=== PATIENT | female | born 1965 | race Caucasian/White ===

== ENCOUNTER 2022-10-28 09:03 | Emergency (ER) | payer OTHER, SELFPAY ==
[2022-10-28] VITALS (9 sets, daily range): BP systolic 134–148; BP diastolic 79–86; PULSE 58–70; TEMP 36; O2SAT 91–100
--- NOTE | 2022-10-28 09:11 | CRLHL7_ITS ---
For Patients: As a result of the Century Cures Act, medical imaging exams and procedure reports are released immediately into your electronic medical record. You may view this report before your referring provider. If you have questions, please contact your health care provider. INDICATION: Stroke, facial droop. COMPARISON: None. TECHNIQUE: CT of the head without IV contrast. Coronal and sagittal reconstructions. FINDINGS: There is a moderate size area of low-attenuation and loss of avina-white differentiation involving the right posterior frontal lobe, parietal lobe, and superior temporal lobe compatible with a developing infarct. No significant mass effect or midline shift. No intracranial hemorrhage or abnormal extra-axial fluid collections. Ventricular caliber is within normal limits. Orbits and extraocular muscles are symmetric. The paranasal sinuses and mastoid air cells are clear. No acute fracture identified. Soft tissues are unremarkable. IMPRESSION: 1. Moderate-sized developing infarct involving the right frontal, parietal, and temporal lobes. 2. Findings discussed with Lexus Schultz at 9:28 a.m. on 10/28/2022. Please note that all CT scans at this facility use dose modulation, iterative reconstruction, and/or weight-based dosing when appropriate to reduce radiation dose to as low as reasonably achievable. Dictated by Maribell Ruvalcaba MD @ 10/28/2022 9:33:26 AM (Electronically Signed)
--- NOTE | 2022-10-28 09:11 | CRLHL7_ITS ---
For Patients: As a result of the Century Cures Act, medical imaging exams and procedure reports are released immediately into your electronic medical record. You may view this report before your referring provider. If you have questions, please contact your health care provider. 1. There is severe narrowing of the M1 segment of the right MCA. Diminutive A2 segment of the right CAN. No other intracranial proximal large vessel occlusion or significant aneurysm identified. 2. Cervical arterial vasculature is patent without evidence of dissection, significant stenosis, or occlusion. Please note that all CT scans at this facility use dose modulation, iterative reconstruction, and/or weight-based dosing when appropriate to reduce radiation dose to as low as reasonably achievable. Dictated by Maribell Ruvalcaba MD @ 10/28/2022 9:44:21 AM (Electronically Signed)
--- NOTE | 2022-10-28 09:11 | CRLHL7_ITS ---
For Patients: As a result of the Century Cures Act, medical imaging exams and procedure reports are released immediately into your electronic medical record. You may view this report before your referring provider. If you have questions, please contact your health care provider. INDICATION: Acute stroke. TECHNIQUE: CTA neck with contrast bolus tracking, 3D angiographic rendering using maximum intensity projection (MIP) and images permanently archived. FINDINGS: There is no significant carotid artery stenosis or dissection. There is no significant vertebral artery stenosis or dissection. The soft tissues of the neck are within normal limits. Degenerative changes are noted in the cervical spine. Emphysematous changes are present in the lung apices. IMPRESSION: No significant carotid or vertebral artery stenosis or dissection. Please note that all CT scans at this facility use dose modulation, iterative reconstruction, and/or weight-based dosing when appropriate to reduce radiation dose to as low as reasonably achievable. Dictated by Jimbo Nicholson MD @ 10/28/2022 1:14:48 PM (Electronically Signed)
--- NOTE | 2022-10-28 09:12 | ED.GENADULT ---
HPI - General Adult General Chief complaint: Neuro Symptoms/Altered Deficit Stated complaint: Stroke like symptoms Time Seen by Provider: 10/28/22 09:10 Source: patient and EMS Mode of arrival: EMS Limitations: no limitations History of Present Illness HPI narrative: 57-year-old female presenting to the ER via EMS with facial droop and slurred speech. Patient states that this all started around 6:00 p.m. last night. This morning her employees could not get a hold for so they had someone come to her house. she was able to ambulate but just could not get to her front door. she states she has just been at home since this happened last night she has not called were alerted anyone. She complains of slurred speech. She denies confusion, weakness, chest pain or shortness of breath. She denies headache. Patient states that she takes no medications and does not see a doctor. She does have a family history of heart disease and diabetes. 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 She does smoke tobacco regularly. Related Data Home Medications Medication Instructions Recorded Confirmed No Known Home Medications 10/28/22 10/28/22 Allergies Allergy/AdvReac Type Severity Reaction Status Date / Time No Known Drug Allergies Allergy Verified 10/28/22 09:43 Review of Systems Status of ROS: Reports: 10 or more systems reviewed and unremarkable except as noted in History and below [facility] Social History Smoking Status: Current every day smoker How often do you have a drink containing alcohol: never AUDIT-C Alcohol total score: 0 Non-prescribed substance use: denies use Exam Narrative: Exam Narrative: Well-nourished well-developed patient in no acute distress. Alert and oriented X3. Answers questions appropriately. Mood and affect are appropriate. Thoughts are goal oriented and rational. No tangential or magical thinking noted. patient has slurred speech. No obvious word-finding difficulty. HEENT: Normocephalic atraumatic. She has an obvious left-sided facial droop.Pupils are equally round reactive to light. Extraocular muscles are intact. Conjunctivae are moist without any icterus noted. Moist mucous membranes. Neck is supple. Cardiovascular: Heart is regular rate and rhythm S1 and S2 are present without any murmurs. Lungs: Clear to auscultation bilaterally no wheezes rhonchi or rales are appreciated. Patient takes deep breaths without any discomfort. Abdomen: Soft and nontender nondistended with normal bowel sounds. Extremities: Bilateral lower extremities are without edema. Normal DP and PT pulses. Skin: Well perfused without any obvious rashes. Strength is 5/5 of the upper and lower extremities. Reflexes are 2+ and symmetric at the knees. There is no motor drift noted. Const: Vital Signs, click to edit/add: Vital Signs - 24 hr 10/28/22 09:18 10/28/22 09:28 10/28/22 09:30 Temperature 96.8 F L Pulse Rate 67 66 Blood Pressure Pulse Oximetry 96 96 10/28/22 09:35 10/28/22 09:54 Temperature Pulse Rate 70 58 L Blood Pressure 148/86 H Pulse Oximetry 95 98 Course Course Hospital Course: Patient was met in the ambulance [facility] and immediately proceeded to CT after initial physical examination In the hallway. IV was established in the CT Suite. CT showing moderate size area of low attenuation involving the right posterior frontal lobe, parietal lobe and superior temporal lobe compatible with a developing infarct. CTA showing severe narrowing of the M1 segment of the right MCA and diminutive A2 segment of the right CAN. I did discussed patient with Dr. Damon , stroke neurologist at [facility], who recommended the patient be transferred. He did not recommend any acute management at this time. Lab work unremarkable, troponin pending. Vitals hemodynamically stable. EKG, read by me, showing normal sinus rhythm with a pulse of 77. Vital Signs Vital signs: Initial Vital Signs Temperature 96.8 F L 10/28/22 09:18 Temperature Source Temporal Artery Scan 10/28/22 09:18 Vital Signs Temperature 96.8 F L 10/28/22 09:18 Temperature 96.8 F L 10/28/22 09:18 Pulse Rate 58 L 10/28/22 09:54 Blood Pressure 148/86 H 10/28/22 09:54 Pulse Oximetry 98 10/28/22 09:54 Medical Decision Making MDM Narrative Medical decision making narrative: 57-year-old female presenting with an ischemic stroke. Patient will be transferred to [facility] for further management. Given that she has had symptoms for approximately 15 hours, she is not a candidate for thrombolytics. Lab Data Lab results reviewed: Yes I reviewed the patient's lab results Labs: Lab Results 10/28/22 10/28/22 Range/Units 09:33 09:43 WBC 8.38 (4.50-11.00) K/uL RBC 4.77 (4.00-5.20) m/uL Hgb 15.1 (12.0-16.0) gm/dL Hct 44.9 (33.0-51.0) % MCV 94 (80-100) fL MCH 32 (26-34) pg MCHC 34 (32-36) gm/dL RDW Coeff of Claudine 14.4 (11.5-15.5) % Plt Count 173 (140-440) K/uL Neut % (Auto) 81.4 H (42.0-72.0) % Lymph % (Auto) 11.8 L (20-44) % Dade % (Auto) 6.1 (0.0-11.0) % Eos % (Auto) 0.4 (0.0-7.0) % Baso % (Auto) 0.2 (0.0-3.0) % Neut # (Auto) 6.80 (1.7-7.0) K/uL Lymph # (Auto) 1.00 (0.90-2.90) K/uL Dade # (Auto) 0.50 (0.00-0.90) K/UL Eos # (Auto) 0.03 (0.00-0.50) K/uL Baso # (Auto) 0.02 (0.00-0.30) K/uL INR 0.93 (0.91-1.10) Sodium 135 (135-149) mmol/L Potassium 4.7 (3.6-5.1) mmol/L Chloride 106 (96-114) mmol/L Carbon Dioxide 21 (20-32) mmol/L BUN 19 (7-30) mg/dL Creatinine 0.6 (0.5-1.5) mg/dL Estimated GFR 103 ml/min Glucose 91 (60-115) mg/dL Lactate 1.5 (0.5-1.9) mmol/L Calcium 8.7 (8.4-10.6) mg/dL Total Bilirubin 0.6 (0.1-1.5) mg/dL Direct Bilirubin 0.2 (0.0-0.5) mg/dL AST 24 (12-35) U/L ALT 15 (4-35) U/L Alkaline Phosphatase 83 (40-150) U/L Troponin I Cancelled Total Protein 7.1 (6.0-8.3) g/dL Albumin 4.1 (3.3-5.0) g/dL Imaging Data CT scan - head: Attestation: I have reviewed the pertinent imaging results. Radiologist's impression: CT of the head without IV contrast. Coronal and sagittal reconstructions. FINDINGS: There is a moderate size area of low-attenuation and loss of avina-white differentiation involving the right posterior frontal lobe, parietal lobe, and superior temporal lobe compatible with a developing infarct. No significant mass effect or midline shift. No intracranial hemorrhage or abnormal extra-axial fluid collections. Ventricular caliber is within normal limits. Orbits and extraocular muscles are symmetric. The paranasal sinuses and mastoid air cells are clear. No acute fracture identified. Soft tissues are unremarkable. IMPRESSION: 1. Moderate-sized developing infarct involving the right frontal, parietal, and temporal lobes. CTA head: Attestation: I have reviewed the pertinent imaging results. Radiologist's impression: Final Report: 1. There is severe narrowing of the M1 segment of the right MCA. Diminutive A2 segment of the right CAN. No other intracranial proximal large vessel occlusion or significant aneurysm identified. 2. Cervical arterial vasculature is patent without evidence of dissection, significant stenosis, or occlusion. ECG Data Attestation: I personally reviewed and interpreted this ECG as follows: Discharge Plan Discharge Clinical Impression: Cerebrovascular accident Patient Disposition: Xfer [facility] Discharge Location: [facility] Condition: Unchanged Prescriptions: No Action No Known Home Medications Stand Alone Forms: [employer] Info Instructions
[2022-10-28] MEDS: 0.9 % SODIUM CHLORIDE 1000 ml 1,000 ML IV (09:38)
[2022-10-28 09:50] LABS: Lactate* 1.5 mmol/L (0.5-1.9)
[2022-10-28 09:51] LABS: Hematocrit 44.9 % (33.0-51.0); Hemoglobin* 15.1 gm/dL (12.0-16.0); Lymphocytes Percent Auto 11.8 % (20-44); Mean Corpuscular HGB Conc 34 gm/dL (32-36); Mean Corpuscular Hemoglobin 32 pg (26-34); Mean Corpuscular Volume 94 fL (80-100); Monocytes Percent Auto 6.1 % (0.0-11.0); Neutrophils Percent Auto 81.4 % (42.0-72.0); Platelet Count* 173 K/uL (140-440); RDW Coefficient of Variation % 14.4 % (11.5-15.5); Red Blood Count 4.77 m/uL (4.00-5.20); White Blood Count* 8.38 K/uL (4.50-11.00)
[2022-10-28 09:52] LABS: Basophils Absolute Auto 0.02 K/uL (0.00-0.30); Basophils Percent Auto 0.2 % (0.0-3.0); Eosinophils Absolute Auto 0.03 K/uL (0.00-0.50); Eosinophils Percent Auto 0.4 % (0.0-7.0); Immature Granulocytes Abs Auto 0.01 K/uL (0.00-0.30); Immature Granulocytes Pct Auto 0.1 %
[2022-10-28 09:54] LABS: Slide Review Reflex No
[2022-10-28 10:15] LABS: Albumin* 4.1 g/dL (3.3-5.0); Chloride* 106 mmol/L (96-114); INR 0.93 (0.91-1.10)
[2022-10-28 10:16] LABS: Potassium* 4.7 mmol/L (3.6-5.1); Sodium* 135 mmol/L (135-149)
[2022-10-28 10:18] LABS: Aspartate Amino Transferase* 24 U/L (12-35); Bilirubin Direct* 0.2 mg/dL (0.0-0.5); Bilirubin Total* 0.6 mg/dL (0.1-1.5); Carbon Dioxide* 21 mmol/L (20-32); Creatinine* 0.6 mg/dL (0.5-1.5); Estimated Glomerular Filt Rate 103 ml/min; Total Protein* 7.1 g/dL (6.0-8.3)
[2022-10-28 10:19] LABS: Alanine Aminotransferase* 15 U/L (4-35); Alkaline Phosphatase* 83 U/L (40-150); Blood Urea Nitrogen* 19 mg/dL (7-30); Calcium* 8.7 mg/dL (8.4-10.6); Glucose* 91 mg/dL (60-115)
--- NOTE | 2022-10-28 10:25 | ED.NURSE ---
report given to lala at [facility]. pt will transfer to [place] [id number] via [facility]. ems paged.
[2022-10-28 10:32] LABS: Troponin I* < 0.01 ng/mL (0.01-0.04)
--- NOTE | 2022-10-28 10:58 | ED.NURSE ---
pt transferred to [place] via [facility]
== END 2022-10-28 11:01 | disposition critical access hospital, planned readmission (94) ==
PROVIDERS: Emergency Provider Family Medicine
DX: I63.9 Cerebral infarction, unspecified (principal)
CPT/HCPCS: 36415; 70450; 70496; 70498; 80048; 80076; 83605; 84484; 85025; 85610; 93005; 94761; 99285; A0425; A0427; A0428; A0429; J7030; Q9967